=== PATIENT | female | born 1945 | race Caucasian/White ===

== ENCOUNTER 2019-04-02 09:34 | Emergency (ER) | payer MEDICARE ==
[~2019-04-02] VITALS: Ht 165.1 cm; Wt 68.6 kg
[2019-04-02 10:03] LABS: BASOPHILS % (AUTO) 0.1 % (0-1); EOSINOPHILS % (AUTO) 0.5 % (0-6); HEMATOCRIT 40.2 % (35.0-45.0); HEMOGLOBIN 13.6 g/dl (12.0-16.0); LYMPHOCYTES # (AUTO) 1.6 X10'3 (1.1-4.8); LYMPHOCYTES % (AUTO) 25.8 % (21-51); MEAN CORPUSCULAR HEMOGLOBIN 30.4 PG (27.0-31.0); MEAN CORPUSCULAR HGB CONC 33.8 g/dL (33.0-36.5); MEAN PLATELET VOLUME 8.4 FL (7.4-10.4); MONOCYTES # (AUTO) 0.5 X10'3 (0-0.9); MONOCYTES % (AUTO) 8.4 % (2-12); NEUTROPHILS # (AUTO) 4.1 X10'3 (1.8-7.7); NEUTROPHILS % (AUTO) 65.2 % (42-75); PLATELET COUNT 194 X10'3 (140-440); RED BLOOD COUNT 4.47 X10'6 (4.20-5.60); WHITE BLOOD COUNT 6.3 X10'3 (4.5-11.0)
[2019-04-02 10:11] LABS: ALANINE AMINOTRANSFERASE 23 U/L (12-78); ALBUMIN 4.2 G/DL (3.4-5.0); ALBUMIN/GLOBULIN RATIO 1.2 (1.1-1.5); ALKALINE PHOSPHATASE 79 IU/L (46-116); ANION GAP 13 (8-16); ASPARTATE AMINO TRANSFERASE 16 U/L (10-37); BILIRUBIN,TOTAL 0.5 MG/DL (0.1-1.0); BLOOD UREA NITROGEN 11 MG/DL (7-18); BUN/CREATININE RATIO 13.4 (6.6-38.0); CHLORIDE 104 MMOL/L (99-107); CREATININE 0.82 MG/DL (0.40-0.90); GLUCOSE 106 MG/DL (70-104); POTASSIUM 3.3 MMOL/L (3.5-5.1); SODIUM 141 MMOL/L (135-145); TOTAL CARBON DIOXIDE 24.5 MMOL/L (24-32); TOTAL PROTEIN 7.6 G/DL (6.4-8.2); eGFR 68 ML/MIN
[2019-04-02 10:23] LABS: PARTIAL THROMBOPLASTIN TIME 28 SECONDS (22-32)
[2019-04-02] MEDS ORDERED: ESOM40CA PO (10:51)
[2019-04-02 11:08] VITALS: BP 149/67
== END 2019-04-02 11:10 | disposition home or self-care (01) ==
LOC: ER 09:34
DX: R00.2 Palpitations (principal); K21.9 Gastro-esophageal reflux disease without esophagitis; Z79.899 Other long term (current) drug therapy; Z95.4 Presence of other heart-valve replacement
CPT/HCPCS: 36415; 71045; 80053; 84484; 85025; 85610; 85730; 93005; 99284

== ENCOUNTER 2019-07-08 15:24 | Emergency (ER) | payer MEDICARE ==
[~2019-07-08] VITALS: Ht 166.4 cm; Wt 70.0 kg
[2019-07-08] MEDS ORDERED: HYDR-4353 PO (16:18)
[2019-07-08 17:12] VITALS: BP 156/74
== END 2019-07-08 17:15 | disposition home or self-care (01) ==
LOC: ER 15:24
DX: S60.221A Contusion of right hand, initial encounter (principal); E78.00 Pure hypercholesterolemia, unspecified; K21.9 Gastro-esophageal reflux disease without esophagitis; Z98.890 Other specified postprocedural states; Z79.899 Other long term (current) drug therapy; W18.39XA Other fall on same level, initial encounter; Y93.89 Activity, other specified; Y92.89 Other specified places as the place of occurrence of the external cause; Y99.8 Other external cause status
CPT/HCPCS: 29125; 73110; 73130; 99284

== ENCOUNTER 2020-09-19 16:05 | Emergency (ER) | payer BC, MEDICARE ==
[~2020-09-19] VITALS: Ht 165.1 cm; Wt 69.1 kg
[2020-09-19] MEDS ORDERED: LORazepam 1 MG tablet PO ONE (16:30)
[2020-09-19] MEDS ORDERED: aspirin 81mg tab.chew PO ONE (16:30)
[2020-09-19] MEDS ORDERED: LORazepam 0.5 MG tablet PO ONE (16:35)
[2020-09-19 17:02] LABS: BASOPHILS % (AUTO) 0.6 % (0-1); EOSINOPHILS % (AUTO) 0.8 % (0-6); HEMATOCRIT 38.9 % (35.0-45.0); HEMOGLOBIN 13.1 g/dl (12.0-16.0); LYMPHOCYTES % (AUTO) 35.1 % (21-51); MEAN CORPUSCULAR HEMOGLOBIN 30.1 PG (27.0-31.0); MEAN CORPUSCULAR HGB CONC 33.7 g/dL (33.0-36.5); MEAN CORPUSCULAR VOLUME 89.3 FL (78-98); MEAN PLATELET VOLUME 8.6 FL (7.4-10.4); MONOCYTES # (AUTO) 0.6 X10'3 (0-0.9); MONOCYTES % (AUTO) 10.9 % (2-12); NEUTROPHILS % (AUTO) 52.6 % (42-75); PLATELET COUNT 196 X10'3 (140-440); RED BLOOD COUNT 4.35 X10'6 (4.20-5.60); RED CELL DISTRIBUTION WIDTH 13.5 % (11.5-14.5); WHITE BLOOD COUNT 5.8 X10'3 (4.5-11.0)
[2020-09-19 17:05] LABS: PARTIAL THROMBOPLASTIN TIME 26 SECONDS (22-32)
[2020-09-19 17:08] LABS: ALANINE AMINOTRANSFERASE 20 U/L (12-78); ALBUMIN 4.2 G/DL (3.4-5.0); ALBUMIN/GLOBULIN RATIO 1.3 (1.1-1.5); ALKALINE PHOSPHATASE 81 IU/L (46-116); ANION GAP 11 (8-16); ASPARTATE AMINO TRANSFERASE 13 U/L (10-37); BILIRUBIN,TOTAL 0.3 MG/DL (0.1-1.0); BLOOD UREA NITROGEN 17 MG/DL (7-18); BUN/CREATININE RATIO 18.3 (6.6-38.0); CALCIUM 9.2 MG/DL (8.5-10.1); CHLORIDE 103 MMOL/L (99-107); CREATININE 0.93 MG/DL (0.40-0.90); GLUCOSE 104 MG/DL (70-104); POTASSIUM 3.4 MMOL/L (3.5-5.1); SODIUM 139 MMOL/L (135-145); TOTAL CARBON DIOXIDE 24.8 MMOL/L (24-32); TOTAL PROTEIN 7.5 G/DL (6.4-8.2); eGFR 59 ML/MIN
[2020-09-19 17:14] LABS: MAGNESIUM 2.1 MG/DL (1.5-2.4)
--- NOTE | 2020-09-19 18:36 | NUR ---
Patient sitting up in bed, alert and oriented x 4. patient lungs clear bilaterally to auscultate. Patient reports no chest pain and stated she feels better. Troponin drawn at this time and patietn updated on plan of care.
[2020-09-19 19:08] VITALS: BP 137/85
== END 2020-09-19 19:05 | disposition home or self-care (01) ==
LOC: ER 16:06
DX: R07.89 Other chest pain (principal); R06.02 Shortness of breath; R11.0 Nausea; F41.9 Anxiety disorder, unspecified; I34.1 Nonrheumatic mitral (valve) prolapse; E78.00 Pure hypercholesterolemia, unspecified; I10 Essential (primary) hypertension; K21.9 Gastro-esophageal reflux disease without esophagitis; Z98.891 History of uterine scar from previous surgery
CPT/HCPCS: 36415; 71045; 80053; 83735; 83880; 84484; 85025; 85610; 85730; 93005; 99285

== ENCOUNTER 2021-06-30 11:46 | Emergency (ER) | payer BC ==
[~2021-06-30] VITALS: Ht 165.1 cm; Wt 68.6 kg
[2021-06-30 12:18] VITALS: BP 158/86
[2021-06-30] MEDS ORDERED: NAPR-56 PO (12:25)
[2021-06-30] MEDS ORDERED: PENI250T2 PO (12:25)
--- NOTE | 2021-06-30 12:38 | NUR ---
assessed by Hector Pradhan PA
== END 2021-06-30 12:35 | disposition home or self-care (01) ==
LOC: ER 11:47
DX: K02.9 Dental caries, unspecified (principal); E78.5 Hyperlipidemia, unspecified; R22.0 Localized swelling, mass and lump, head; R14.0 Abdominal distension (gaseous); E78.00 Pure hypercholesterolemia, unspecified; I10 Essential (primary) hypertension; K21.9 Gastro-esophageal reflux disease without esophagitis; Z98.890 Other specified postprocedural states; Z79.2 Long term (current) use of antibiotics; Z79.899 Other long term (current) drug therapy
CPT/HCPCS: 99283

== ENCOUNTER 2024-07-03 17:02 | Emergency (ER) | payer BC ==
[~2024-07-03] VITALS: Ht 165.1 cm; Wt 70.1 kg
[2024-07-03 17:15] VITALS: TEMP 97.9
[2024-07-03] MEDS ORDERED: HYDR-3965 PO (21:29)
[2024-07-03] MEDS ORDERED: ACET-3174 PO (21:29)
[2024-07-03] MEDS ORDERED: METH-798 PO (21:29)
[2024-07-03] MEDS ORDERED: MELO-102 PO (21:29)
[2024-07-03] MEDS: acetaminophen 325mg tablet PO STA (21:57)
[2024-07-03] MEDS: ibuprofen tablet 400 MG TABLET PO STA (21:58)
[2024-07-03 22:43] VITALS: BP 156/89; PULSE 78; RESP 14; O2SAT 100
== END 2024-07-03 22:45 | disposition home or self-care (01) ==
LOC: ER 17:02
DX: M54.50 Low back pain, unspecified (principal); E78.00 Pure hypercholesterolemia, unspecified; I10 Essential (primary) hypertension; K21.9 Gastro-esophageal reflux disease without esophagitis; Z98.890 Other specified postprocedural states
CPT/HCPCS: 72100; 99283